=== PATIENT | female | born 1990 | race African-American/Black ===

== ENCOUNTER 2022-12-08 15:33 | Inpatient (IN) | payer BC, OTHER ==
[2022-12-08] MEDS ORDERED: DEXTROSE 5%-LACTATED RINGERS 1,000 ML IV SCH ×2 (17:00→21:00)
[2022-12-08 18:27] VITALS: BMI 29.8
[2022-12-08] MEDS ORDERED: OXYTOCIN 20 UNITS in 0.9% NS 20 UNIT/1,000 ML INFUS.BAG IV ONE (18:34)
[2022-12-08] MEDS ORDERED: LIDOCAINE HCL 1% PRESERVATIVE FREE - 30ML VIAL ONE (18:34)
[2022-12-08 18:35] LABS: BASO % 0.1 % (0-2.0); EOS % 0.5 % (0-4.5); HEMATOCRIT 37.4 % (32.4-45.2); HEMOGLOBIN 12.5 GM/dL (10.7-15.3); LYMPH % 13.4 % (8-40); MCHC 33.6 g/dl (32.0-36.0); MEAN CELL VOLUME 86.2 fl (80-96); MEAN PLT VOLUME 8.5 fl (7.5-11.1); MONO % 5.8 % (3.8-10.2); NEUT % 80.2 % (42.8-82.8); PLATELET COUNT 218 10^3/uL (134-434); RBC 4.33 M/mm3 (3.60-5.2); RDW 18.8 % (11.6-15.6); WHITE BLOOD COUNT 10.3 K/mm3 (4.0-10.0)
[2022-12-08 18:50] LABS: INR 1.03 (0.83-1.09); PROTHROMBIN TIME (PATIENT) 11.9 SEC (9.7-13.0)
[2022-12-08 18:53] LABS: ACTIVATED PTT 27.5 SECONDS (25.2-36.5)
[2022-12-08 19:01] LABS: POTASSIUM 3.5 mmol/L (3.5-5.1)
[2022-12-08 19:03] LABS: CALCIUM 9.1 mg/dL (8.5-10.1)
[2022-12-08 19:07] LABS: CREATININE 0.7 mg/dL (0.55-1.3)
[2022-12-08] MEDS ORDERED: WITCH HAZEL 50% (TUCKS) 40 PAD/JAR PAD TP PRN (20:52)
[2022-12-08] MEDS ORDERED: BENZOCAINE 28 GM HEMORRHOIDAL OINTMENT TP PRN (20:52)
[2022-12-08] MEDS ORDERED: BENZOCAINE 20% 57 GM BOTTLE TP PRN (20:52)
[2022-12-08] MEDS ORDERED: METHYLERGONOVINE MALEATE 0.2 MG/1 ML AMP IM PRN (20:52)
[2022-12-08] MEDS ORDERED: ACETAMINOPHEN 325 MG TABLET (FP) PO PRN (20:52)
[2022-12-08] MEDS ORDERED: BISACODYL 10 MG SUPP.RECT RC PRN (20:52)
[2022-12-08] MEDS ORDERED: oxyCODONE HCL 5 MG TABLET PO PRN (20:52)
[2022-12-08] MEDS ORDERED: OXYTOCIN 20 UNITS in 0.9% NS 20 UNIT/1,000 ML INFUS.BAG IV SCH (21:00)
[2022-12-08] MEDS ORDERED: ACETAMINOPHEN 325 MG TABLET (FP) ONE (21:46)
[2022-12-08 23:29] VITALS: RESP 18
[2022-12-09] MEDS: IBUPROFEN 600 MG TABLET (FP) PO PRN ×2 (03:32→12:42)
[2022-12-09 06:58] LABS: BASO % 0.4 % (0-2.0); EOS % 0.3 % (0-4.5); HEMATOCRIT 29.5 % (32.4-45.2); HEMOGLOBIN 9.6 GM/dL (10.7-15.3); LYMPH % 15.3 % (8-40); MCH 28.7 pg (25.7-33.7); MCHC 32.5 g/dl (32.0-36.0); MEAN CELL VOLUME 88.1 fl (80-96); MEAN PLT VOLUME 8.9 fl (7.5-11.1); MONO % 8.8 % (3.8-10.2); NEUT % 75.2 % (42.8-82.8); PLATELET COUNT 199 10^3/uL (134-434); RBC 3.35 M/mm3 (3.60-5.2); RDW 18.7 % (11.6-15.6); WHITE BLOOD COUNT 16.5 K/mm3 (4.0-10.0)
[2022-12-09] MEDS: FERROUS SO4 325 MG TABLET (FP) PO SCH ×3 (08:56→17:40)
[2022-12-09] MEDS: PRENATAL VITAMINS W/ FOLIC ACID TABLET (FP) PO SCH (10:37)
[2022-12-09] MEDS ORDERED: SENNOSIDES/DOCUSATE COMBO (SENNA PLUS) TABLET (UD) PO PRN (22:00)
[2022-12-10] MEDS: IBUPROFEN 600 MG TABLET (FP) PO PRN (00:38)
[2022-12-10] MEDS: FERROUS SO4 325 MG TABLET (FP) PO SCH (08:14)
[2022-12-10 08:24] VITALS: BP 107/67; PULSE 98; TEMP 98
[2022-12-10] MEDS: PRENATAL VITAMINS W/ FOLIC ACID TABLET (FP) PO SCH (09:27)
== END 2022-12-10 14:07 | disposition home or self-care (01) | DRG 807 ==
LOC: JDEL 15:33 → JLDR 16:50 → J3W 22:33
PROVIDERS: ADMIT Obstetrics & Gynecology; ATTEND Obstetrics & Gynecology
PROC: 10E0XZZ Delivery of Products of Conception, External Approach (ICD-10-PCS; principal; 2022-12-08)
PROC: 0W8NXZZ Division of Female Perineum, External Approach (ICD-10-PCS; 2022-12-08)
DX: O80 Encounter for full-term uncomplicated delivery (principal); Z37.0 Single live birth; Z3A.38 38 weeks gestation of pregnancy
CPT/HCPCS: 36415; 59025; 80048; 85025; 85610; 85730; 86780; 86850; 86900; 86901